=== PATIENT | male | born 1935 | race Caucasian/White ===

== ENCOUNTER → 2016-06-08 | Outpatient (CLI) | payer OTHER, BC ==
[~2016-06-08] VITALS: Ht 177.8 cm; Wt 83.9 kg
[~2016-06-08] MED LIST: ACETAMINOPHEN-1 EAC1 PO; ADVAIR HFA115 MCG/21 INH; ALTACE10 MG PO; AMBIEN 5 MG TABL5 M1 PO; AMLODIPINE BESY10 MG PO; AMOXICILLIN875 MG PO; ASPIRIN81 M2 PO; ATRIPLA TABLET1 EACH PO; AUGMENTIN 875875 MG PO; CARBAMAZEPINE100 M2 PO; CARDIO OMEGA B1 EACH PO; CARDIO TEA1 EACH PO; CENTRUM SILVER1 EAC4 PO; CO Q-10100 MG PO; COLACE100 MG PO; GUAIFENESIN600 MG PO; HUMALOG100 UNIT/2 SUBQ; HYDRALAZINE HC100 MG PO; HYDROCHLOROTHIA25 M2 PO; HYTRIN 2MG CAPSU2 MG PO; LANTUS100 UNIT/M SUBQ; LEVAQUIN 500 M500 M2 PO; LEVOTHYROXIN0.088 MG PO; LOVASTATIN 20 M20 MG PO; MELATONIN PO; MUCINEX TA600 MG/TA2 PO; MULTIVITAMINS1 EAC6 PO; NORCO 5-325 TA1 EACH PO; NORVASC10 MG PO; OMEGA-31000 M1 PO; POTASSIUM20 PO; PREDNISONE 10 M10 MG PO; PREDNISONE 20 M20 MG PO; PRESERVISION A1 EACH PO; PROAIR HFA8.5 GM INH; PROCTOFOAM-HC F10 G1 RE; RESTORIL7.5 M1 PO; TRANDATE 200 M200 M1 PO; TYLENOL W/CODEI1 TA2 PO; VITAMIN D2000 UNI1 PO; ZYRTEC10 MG PO; [UNRECOGNIZED DRUG - CODE] PO
--- NOTE | ~2016-06-08 | HPC ---
[facility] [place] [address] PAIN MANAGEMENT CONSULTATION Name: COOPER CONDE Room #: REG Margo Quiñones.#: [id number] Admission: 06/08/16 Attend Phys: Neptali Islas MD Discharge: Date of : 35 Report #: [id number] THIS REPORT FOR: //name// CC: Hermann Islas DATE OF REGISTRATION: 06/08/2016. CHIEF COMPLAINT: Facial pain on the right. HISTORY OF PRESENT ILLNESS: The patient is a delightful 80-year-old, Dr. Hermann Zapien asked me to see in consultation because of diagnosis of trigeminal neuralgia. Beginning in 09/2015, he began to noticing pain in right side of the face. This developed into a distribution that would be consistent with a second division of trigeminal nerve in the area around that orbit and down into the maxilla, but not into the mandible. The pain at one point was extremely severe, 10/10, sharp, stabbing and shooting. Dr. Zapien and I spoke on the phone and Dr. Zapien initiated therapy with Tegretol a few weeks ago. I am pleased to report that today he scores his average daily pain as a 1, he has had an excellent response to that medication which is so typically helpful for facial neuralgias including trigeminal neuralgia. He gets his appointment today to discuss the condition. I informed in the pain clinic visits often have two components. One is to discuss the disease state, the prognosis and assistant terminal manager management and the second is to help him feel better. He is already accomplished the second portion of the visit! CURRENT MEDICATION: Doses Tegretol 200 mg twice daily, insulin, cholecalciferol, CoQ10, omega 3, hydrochlorothiazide, hydralazine, lovastatin, Synthroid, Altace, Trandate, K-Dur, Hytrin, aspirin, ProAir, CardioTabs, ,Zyrtec, Centrum Silver, Tegretol 200 mg b.i.d., Atripla tablet daily and amlodipine. PAST MEDICAL HISTORY: HIV positive. He has been treated very effectively with antiviral agents and reports that his counts have been undetectable since 1995. Perirectal abscess 2014, gallbladder removed 2002, lymphnode biopsy in 1997, hemorrhoidectomy in 1995, appendectomy 1961, tonsillectomy in 1940. ALLERGIES: SULFA. SOCIAL HISTORY: He is . Denies use of any tobacco or alcohol. Has been retired since 2000. PHYSICAL EXAMINATION: GENERAL: This is a very pleasant, outgoing 80-year-old, alert and oriented, with no signs of anxiety, depression or dementia. VITAL SIGNS: His blood pressure is 143/60, heart rate 57, respirations 16. BMI [facility] [address] [place] [address] PAIN MANAGEMENT CONSULTATION Name: COOPER CONDE Ritchie Room #: REG CL [place]asta#: [id number] Admission: 06/08/16 Attend Phys: Neptali Islas MD Discharge: Date of : 35 Report #: [id number] is 26.5. HEENT: Within normal limits. Pupils are equal, round reaction to light. EOMs intact. Examination of the temporomandibular joint reveals no significant tenderness on the right or left. Mucous membranes are moist, there are no oral lesions. No palpable masses or adenopathy. There is no discomfort on the occiput. Cervical range of motion is excellent with no discomfort. NEUROLOGIC: Cranial nerve exam 2-12 was examined with no evidence of cranial nerve palsy or weakness. Light touch discomfort of the face is not present at this time, there was no allodynia. IMAGING: CT scan of the head is reviewed. 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 There is a small cyst involving sphenoid bone and the clivus anterior to the dong which is not enhancing. This has characteristics suggesting a small CSF extension measuring 3 x 5 mm and is probably consequential related to his current pain. IMPRESSION: 1. Trigeminal neuralgia, currently well managed with Dr. Zapien regimen of Tegretol. We discussed risks of medication and that he should have periodic CBC to check for blood counts, which can be affected by the medication, that is scheduled for in Dr. Zapine's office. 2. We reviewed the course of the disease, which can be episodic. Any recurrence of pain may be followed by possible need for more aggressive treatments which are certainly not needed today. We reviewed neurolytic procedures which have had mixed success, Cyberknife and also the unlikely possibility of microvascular decompression, which would require craniotomy! He was discharged with no followup visit. Dr. Zapien manages his Tegretol. By: 1212 1421 Neptali Islas MD /nt
[2016-06-08 13:23] VITALS: BP 143/60
== END ==
LOC: PAIN 07:14
DX: G50.0 Trigeminal neuralgia (principal); Z79.4 Long term (current) use of insulin; Z79.82 Long term (current) use of aspirin; Z90.49 Acquired absence of other specified parts of digestive tract

== ENCOUNTER 2016-08-05 06:08 | Day surgery (SDC) | payer OTHER, BC ==
[~2016-08-05] VITALS: Ht 177.8 cm; Wt 78.9 kg
--- NOTE | ~2016-08-05 | O ---
[facility] [place] [address] OPERATIVE REPORT Name: COOPER CONDE Room #: DEP [facility].#: [id number] Admission: 08/05/16 Attend Phys: Jeffrey Norton MD Discharge: 08/05/16 Date of : 35 Report #: [id number] THIS REPORT FOR: //name// CC: Hermann Norton DATE OF SERVICE: 08/05/2016 PREOPERATIVE DIAGNOSIS: Large left inguinal hernia extending into the scrotum, likely containing sigmoid colon, chronically incarcerated. POSTOPERATIVE DIAGNOSIS: Large left inguinal hernia with sigmoid colon as part of the hernia sac i.e., sliding inguinal hernia. SURGEON: Jeffrey Norton MD. PROCEDURES PERFORMED: Open repair of large left inguinal hernia with extended Prolene hernia system. ANESTHESIA: General anesthesia. COMPLICATIONS: None. ESTIMATED BLOOD LOSS: 5 mL. PROCEDURE NOTE: With the patient under general anesthesia, IV antibiotic was administered. Abdomen was prepped and draped in a sterile fashion. Timeout was performed. A 0.25% Marcaine was used to anesthetize the skin and subcutaneous tissue. A marking pen was used to draw the skin incision. This was placed slightly above the pubic tubercle. Timeout was performed. The superficial vessels were divided between clamps and ligated with 3-0 Vicryl tie. External oblique fascia was then identified, opened up. The external oblique fascia was cleaned off the inner oblique muscles with the peanuts and cautery. The cord structure was isolated. A drain was placed around the cord. The patient had a very thick cord structure, which contained a hernia sac. The peritoneal hernia sac was identified, opened up. The hernia sac itself was not very extensive, but the posterior lateral wall of the hernia sac was made of sigmoid colon. I was able to feel through the hernia sac into the peritoneal cavity. This is a large indirect hernia with sliding component. The lateral posterior wall was made down the sigmoid colon. The sigmoid colon was free from the rest of the peritoneum. The sigmoid colon was initially delivered out and then adhesions were freed from it, and this was then freed from the hernia sac. This was able to be reduced. The hernia sac was then closed as best as possible with 2-0 PDS suture. The rest of the hernia sac was also then freed from the wall and then reduced back into the properitoneal space. The cord was isolated. [address] [address] OPERATIVE REPORT Name: ELTONCOOPER Room #: DEP [facility] Yokasta#: [id number] Admission: 08/05/16 Attend Phys: Jeffrey Norton MD Discharge: 08/05/16 Date of : 35 Report #: [id number] Almost the whole floor is pretty well destroyed by the indirect hernia because of how long it has been there. Dissection was carried out in the properitoneal space, freeing the wall in the properitoneal space. Extended Prolene hernia system was used. The circular posterior mesh was placed underneath the posterior wall. This was then able to keep the hernia content from pushing out. The circular posterior portion of the mesh was opened up as much as possible. The anterior oval shaped mesh was trimmed slightly medially. The oval portion of the mesh was then sewn to the pubic tubercle and then in a running fashion to the iliopubic tract and the inguinal ligament inferolaterally. This was tied to itself after went lateral to the internal ring. A slit was made medially to accommodate the cord. The mesh was placed around the cord. The mesh was sutured again to the pubic tubercle medially, then to the internal oblique fascia or conjoint tendon. Care was not to disturb the ilioinguinal nerve and the iliohypogastric nerve. The mesh was sewn in well, supported well. Irrigation was performed. The cord structure was then released and then the external oblique fascia was closed with 3-0 PDS in running fashion. Subcutaneous tissue was closed with 4-0 PDS in interrupted fashion. This is the Judi's layer. Skin was then closed with 4-0 PDS running subcuticular fashion. By: 2145 2331 Jeffrey Norton MD /pb
--- NOTE | ~2016-08-05 | H ---
[facility] [place] [address] HISTORY AND PHYSICAL Name: COOPER CONDE Room #: 150-11 [facility]..#: [id number] Admission: 08/05/16 Attend Phys: Jeffrey Norton MD Discharge: Date of : 35 Report #: [id number] THIS REPORT FOR: //name// CC: Hermann Norton PREOPERATIVE DIAGNOSIS: Large left inguinal hernia. HISTORY OF PRESENT ILLNESS: The patient is an 80-year-old who is HIV positive. The patient was seen today by Dr. Hermann Zapien. He has been complaining of enlarging left inguinal hernia over the last 3-4 weeks. It feels like his testicle is swollen. This may have been secondary to him having difficult bowel movement and straining. He has not been aware of prior hernia. He does use stool softener. He is having some soreness across the lower abdomen, feels like gas buildup. No nausea, no vomiting. The patient is eating without difficulty. No chronic sneeze or coughing. The patient does not do much heavy lifting, but occasionally he does lift his 's wheelchair from the trunk of a car. No family history of hernia. The patient is seen in the office, has a pretty large left inguinal hernia that I was not able to put back in, but the hernia is soft, it is not acutely incarcerated, probably chronically incarcerated. The patient is recommended to have his left inguinal hernia repair. He is being worked in today. PAST MEDICAL HISTORY: He has diabetes, high blood pressure, mild asthma, and HIV positive. MEDICATIONS: Include hydralazine, hydrochlorothiazide, labetalol, Mevacor, omega 3, Altace, Hytrin, K-Dur, Atripla, Zyrtec, and Tegretol. He takes Humalog, Lantus, Norvasc, Synthroid, and vitamins. ALLERGIES: The patient has allergies to SULFA. PAST SURGICAL HISTORY: He has had appendectomy many years ago, laparoscopic cholecystectomy, hemorrhoidectomy, lymph node biopsy, and tonsillectomy. FAMILY HISTORY: Unremarkable. SOCIAL HISTORY: The patient is retired. Does not smoke or drink. REVIEW OF SYSTEMS: He has valvular dysfunction. No shortness of breath, chest pain, or palpitations. No numbness or weakness. PHYSICAL EXAMINATION: GENERAL: The patient is an elderly male, in no acute distress. HEENT: Pupils react to light. Extraocular muscles are intact. Oropharynx clear. [facility] [address] [place] [address] HISTORY AND PHYSICAL Name: COOPER CONDE Room #: 150-[address] [place] [address]#: [id number] Admission: 08/05/16 Attend Phys: Jeffrey Norton MD Discharge: Date of : 35 Report #: [id number] NECK: Soft and supple, no masses. LUNGS: Clear to auscultation. HEART: Regular rate and rhythm. No murmur or gallop. ABDOMEN: Soft and nondistended. He has a large left inguinal hernia that extends into the two-thirds of the scrotum. His testicles even difficult to palpate in the left scrotal sac because of the large hernia. I was able to reduce some of it, but not the majority of the hernia. He does not have an acute abdomen. There is no redness in the hernia. He has a large right lower quadrant incision from his appendectomy. EXTREMITIES: No cyanosis, clubbing, or edema. IMPRESSION: The patient is an 80-year-old with a large left inguinal hernia. This has been present for about three weeks and became acutely aware of this. The patient likely has chronic incarcerated hernia. I do not think this is acute incarceration and there is no evidence of strangulation. Because of the large hernia and the symptomatic nature that he has been experiencing lower abdominal discomfort, probably because of may be some mild obstruction. He is recommended to have his hernia repaired. This will be performed in an open manner using a mesh. Risk of bleeding, infection, mesh infection and hernia recurrence was discussed. The patient understands and wishes to proceed. He may be able to go home after the procedure depending on how the procedure goes. He will receive preoperative IV antibiotics. By: 2130 2343 Jeffrey Norton MD /nt
[~2016-08-05 06:08] MED LIST changes: +ALLEGRA ALLERG180 MG PO; +CARBAMAZEPINE200 MG PO
[2016-08-05 11:00] VITALS: BP 147/60
[2016-08-05 11:10] LABS: CALCIUM 8.7 mg/dL (8.5-10.1); POTASSIUM 4.2 mmol/L (3.5-5.1)
[2016-08-05 11:15] LABS: ALBUMIN 3.6 g/dL (3.4-5.0); TOTAL BILIRUBIN 0.7 mg/dL (<0.1-1.0); TOTAL PROTEIN 7.4 g/dL (6.4-8.2)
[2016-08-05] MEDS ORDERED: NORCO 5-325 TA1 EACH PO (14:33)
[2016-08-05 15:09] VITALS: BP 147/60
== END 2016-08-05 15:40 | disposition home or self-care (01) ==
LOC: TBA 06:08 → OR 06:08
PROVIDERS: Surgery
DX: K40.90 Unilateral inguinal hernia, without obstruction or gangrene, not specified as recurrent (principal); E11.9 Type 2 diabetes mellitus without complications; J45.909 Unspecified asthma, uncomplicated; I10 Essential (primary) hypertension; G50.0 Trigeminal neuralgia; E03.9 Hypothyroidism, unspecified; J32.9 Chronic sinusitis, unspecified; G47.33 Obstructive sleep apnea (adult) (pediatric); E78.00 Pure hypercholesterolemia, unspecified; Z79.4 Long term (current) use of insulin; Z90.49 Acquired absence of other specified parts of digestive tract; Z88.2 Allergy status to sulfonamides
CPT/HCPCS: 50010; 50101; 50386; 50403; 54111; 54118; 56524; 56525; 62110; 62900; 70005

== ENCOUNTER 2016-09-05 22:44 | Emergency (ER) | payer OTHER, BC ==
[~2016-09-05] VITALS: Ht 157.5 cm; Wt 82.6 kg
--- NOTE | ~2016-09-05 | EKG ---
[address] [place] [address] ELECTROCARDIOGRAM REPORT Name: COOPER CONDE Ritchie [id number] Admission: 09/05/16 Attend Phys: Discharge: 09/06/16 Date of : 35 Report #: [id number] THIS REPORT FOR: //name// [facility] ED Test Date: 2016-09-05 Test Time: 23:05:12 Pat Name: COOPER CONDE Department: Room: Gender: Industrial Cleaning Technician: [facility] : 1935 Requested By: Raquel Ruiz Order Number: [id number] MD: Roman Amaro Measurements Intervals [place] Rate: 109 P: LA: QRS: -25 QRSD: 97 T: 24 QT: 343 QTc: 463 Interpretive Statements Junctional tachycardia Left ventricular hypertrophy No previous ECG available for comparison Electronically Signed On 09-07-2016 8:24:41 CDT by Roman Amaro [email or web address] <ELECTRONICALLY SIGNED> By: Roman Amaro MD, [facility] 09/07/16 0824 2305 2305 Roman Amaro MD, FACC /EPI
[2016-09-05 23:08] LABS: URINE BILIRUBIN NEGATIVE (Negative); URINE BLOOD NEGATIVE (Negative); URINE COLOR YELLOW; URINE GLUCOSE-RANDOM* NEGATIVE (Negative); URINE KETONES NEGATIVE (Negative); URINE NITRITE NEGATIVE (Negative); URINE PROTEIN (DIPSTICK) NEGATIVE (Negative); URINE SPECIFIC GRAVITY 1.015 (1.003-1.035); URINE UROBILINOGEN 0.2 E.U./dl (0.2-1.0)
[2016-09-05 23:45] LABS: HEMATOCRIT 38.3 % (42.0-52.0); HEMOGLOBIN 13.4 gm/dL (14.0-18.0); MCH 34.7 pg (26.0-34.0); MCV 99.3 fL (80.0-100.0); PLATELET COUNT 73 thou/uL (150-400); RBC 3.85 mil/uL (4.50-6.00); RDW 12.8 % (10.5-14.5); WBC 4.7 thou/uL (4.0-11.0)
[2016-09-05 23:48] LABS: MANUAL DIFF YES
[2016-09-05 23:56] LABS: POTASSIUM 3.6 mmol/L (3.5-5.1)
[2016-09-06 00:02] LABS: ALBUMIN 3.3 g/dL (3.4-5.0); DIRECT BILIRUBIN 0.2 mg/dL (<0.1-0.3); TOTAL BILIRUBIN 0.5 mg/dL (<0.1-1.0); TOTAL PROTEIN 7.1 g/dL (6.4-8.2)
[2016-09-06 00:12] LABS: ABSOLUTE NEUTROPHILS 4.6 thou/uL (1.4-8.2); LARGE PLATELETS OCCASIONAL; PLATELET ESTIMATE DECREASED; TOTAL CELL COUNT 100
[2016-09-06] MEDS ORDERED: CARDIO OMEGA B1 EACH PO (01:15)
[2016-09-06] MEDS ORDERED: VITAMIN B12 PO (01:20)
[2016-09-06] MEDS ORDERED: MAGOX 400400 MG PO (01:20)
[2016-09-06] MEDS ORDERED: CALCIUM 600 +1 EAC1 PO (01:21)
[2016-09-06] MEDS ORDERED: ZINC50 M1 (01:22)
[2016-09-06] MEDS ORDERED: CO Q-10100 MG (01:22)
[2016-09-06] MEDS ORDERED: [UNRECOGNIZED DRUG - OTHER] PO (01:25)
[2016-09-06] MEDS ORDERED: TEGRETOL200 MG (01:26)
== END 2016-09-06 01:04 | disposition home or self-care (01) ==
LOC: ER 22:44
PROVIDERS: Emergency Medicine
DX: R50.9 Fever, unspecified (principal); D69.6 Thrombocytopenia, unspecified; I10 Essential (primary) hypertension; E11.9 Type 2 diabetes mellitus without complications; E03.9 Hypothyroidism, unspecified; G47.30 Sleep apnea, unspecified; J45.909 Unspecified asthma, uncomplicated; E78.00 Pure hypercholesterolemia, unspecified; Z88.2 Allergy status to sulfonamides; Z90.89 Acquired absence of other organs; Z90.49 Acquired absence of other specified parts of digestive tract; Z21 Asymptomatic human immunodeficiency virus [HIV] infection status; Z79.4 Long term (current) use of insulin

== ENCOUNTER 2018-12-13 13:19 | Emergency (ER) | payer OTHER, BC ==
[~2018-12-13] VITALS: Ht 177.8 cm; Wt 75.3 kg
[~2018-12-13 13:19] MED LIST changes: +CALCIUM 600 +1 EAC1 PO; +CO Q-10100 MG; +MAGOX 400400 MG PO; +TEGRETOL200 MG PO; +VITAMIN B12 PO; +ZINC50 M1; +[UNRECOGNIZED DRUG - OTHER] PO
[2018-12-13] MEDS ORDERED: ASPIR 8181 MG PO (13:52)
[2018-12-13] MEDS ORDERED: KLOR-CON 1010 MEQ PO (13:52)
[2018-12-13] MEDS ORDERED: NEURONTIN 300300 M1 PO (13:55)
[2018-12-13 14:11] VITALS: BP 138/53
== END 2018-12-13 14:11 | disposition home or self-care (01) ==
LOC: ER 13:19
DX: G50.0 Trigeminal neuralgia (principal); I10 Essential (primary) hypertension; E11.9 Type 2 diabetes mellitus without complications; E78.00 Pure hypercholesterolemia, unspecified; J45.909 Unspecified asthma, uncomplicated; G47.30 Sleep apnea, unspecified; B20 Human immunodeficiency virus [HIV] disease; Z79.4 Long term (current) use of insulin; Z90.49 Acquired absence of other specified parts of digestive tract; Z88.2 Allergy status to sulfonamides

== ENCOUNTER → 2019-02-13 | Outpatient (CLI) | payer OTHER, BC ==
[~2019-02-13] VITALS: Ht 177.8 cm; Wt 75.8 kg
[~2019-02-13] MED LIST changes: +ASPIR 8181 MG PO; +HYTRIN 2MG CAPSU2 M1 PO; +IRON325 PO; +KLOR-CON 1010 MEQ PO; +MAGNESIUM400 MG PO; +NEURONTIN 300300 M1 PO; +PRESERVISION L1 EACH PO; +TURMERIC500 M2 PO; +VITAMIN D35000 UNIT PO; +ZYRTEC10 M4 PO
[2019-02-13 10:28] VITALS: BP 140/59
--- NOTE | 2019-02-13 11:13 | NUR ---
Pain Clinic Assessment: 1. History of Osteoarthritis: Not Applicable History of Rheumatoid Arthritis: Not Applicable 2. Height: 5 ft. 10 in. 177.8 cm. Weight: 167.0 lb. oz. 75.751 kg. Patient's BMI: 24.0 3. Vital Signs: BP: 140/59 Pulse: 51 Resp: 14 Temp: 02 Sat: 98 ECG Mon: 4. Pain Intensity: 9-10-NOW FROM TOUCHING 5. Fall Risk: Dizziness: N Needs help standing or walking: N Fallen in the last 3 months: N Fall risk comments: 6. Patient on Blood Thinner: None 7. History of Hypertension: Y 8. Opioid Therapy greater than 6 weeks: N Opiate Contract Signed: 9. Risk Assessment Tool Provided: LOW 10. Functional Assessment Tool: 11. Recreational Drug Use: Never Drug Type: Tobacco Use: Never Smoker Tobacco Type: Amount or Packs/day: How Many Years: Alcohol Use: No Frequency: Quant:
== END ==
LOC: PAIN 06:56
DX: G50.0 Trigeminal neuralgia (principal); Z79.899 Other long term (current) drug therapy; Z88.2 Allergy status to sulfonamides

== ENCOUNTER → 2019-04-06 | Outpatient (CLI) | payer OTHER, BC | LOC: RAD 14:17 | DX: J45.20 Mild intermittent asthma, uncomplicated (principal); M41.84 Other forms of scoliosis, thoracic region ==

== ENCOUNTER 2020-05-13 21:17 | Inpatient (IN) | payer OTHER, BC ==
[~2020-05-13] VITALS: Ht 177.8 cm; Wt 73.9 kg
[2020-05-13 21:20] VITALS: BP 134/51
[2020-05-13] MEDS ORDERED: BIKTARVY 50-201 EACH PO (21:49)
[2020-05-13] MEDS ORDERED: TAMSULOSIN HCL0.4 MG PO (21:53)
[2020-05-13 21:54] LABS: ABSOLUTE NEUTROPHILS 2.4 thou/uL (1.4-8.2); BASOPHILS 0.9 % (0.0-2.0); EOSINOPHILS 4.2 % (0.0-3.0); HEMATOCRIT 33.1 % (42.0-52.0); HEMOGLOBIN 11.9 gm/dL (14.0-18.0); LYMPHOCYTES 15.8 % (24.0-44.0); MCH 35.1 pg (26.0-34.0); MCHC 35.9 g/dL (28.0-37.0); MCV 97.6 fL (80.0-100.0); MONOCYTES 12.8 % (1.0-8.0); PLATELET COUNT 85 thou/uL (150-400); POLYS 66.3 % (36.0-66.0); RBC 3.39 mil/uL (4.50-6.00); RDW 12.7 % (10.5-14.5); WBC 3.6 thou/uL (4.0-11.0)
[2020-05-13] MEDS ORDERED: INSULIN LI100 UNIT/1 (21:57)
[2020-05-13 22:11] LABS: ALBUMIN 3.4 g/dL (3.4-5.0); CALCIUM 8.2 mg/dL (8.5-10.1); CREATININE 0.8 mg/dL (0.7-1.3); DIRECT BILIRUBIN 0.2 mg/dL (<0.1-0.2); POTASSIUM 3.8 mmol/L (3.5-5.1); TOTAL BILIRUBIN 0.6 mg/dL (0.2-1.0); TOTAL PROTEIN 6.4 g/dL (6.4-8.2)
[2020-05-14 03:19] LABS: CALCIUM 7.7 mg/dL (8.5-10.1); CREATININE 0.8 mg/dL (0.7-1.3); MAGNESIUM 1.5 mg/dL (1.8-2.4); POTASSIUM 3.5 mmol/L (3.5-5.1)
[2020-05-14 03:28] LABS: URINE BILIRUBIN NEGATIVE (Negative); URINE BLOOD NEGATIVE (Negative); URINE CLARITY CLEAR; URINE COLOR YELLOW; URINE GLUCOSE-RANDOM* NEGATIVE (Negative); URINE KETONES NEGATIVE (Negative); URINE LEUKOCYTES-REFLEX NEGATIVE (Negative); URINE NITRITE-REFLEX NEGATIVE (Negative); URINE PROTEIN (DIPSTICK) NEGATIVE (Negative)
[2020-05-14 03:32] LABS: URINE CREATININE-RANDOM* 54.5 mg/dL
--- NOTE | 2020-05-14 07:20 | EKG ---
[address] [place] [address] ELECTROCARDIOGRAM REPORT Name: COOPER CONDE Room #: 170-10 ADM IN M.R.#: [id number] Admission: 05/13/20 Attend Phys: Derrek Pardo MD Discharge: Date of : 35 Report #: [id number] [facility] ED Test Date: 2020-05-13 Test Time: 21:40:27 Pat Name: COOPER CONDE Department: Room: 170 Gender: M Technical Planner: gaurav vale : 1935 Requested By: Jairo Hirsch Order Number: [id number] MD: Jason Rosario Measurements Intervals [place] Rate: 52 P: 35 UT: 265 QRS: -28 QRSD: 107 T: 62 QT: 451 QTc: 420 Interpretive Statements Sinus rhythm Prolonged UT interval RSR' in V1 or V2, right VCD or RVH Left ventricular hypertrophy Compared to ECG 09/05/2016 23:05:12 First degree AV block now present Right ventricular hypertrophy now present RSR' in V1 or V2 now present Junctional tachycardia no longer present Electronically Signed On 05-14-2020 7:20:28 SANDBLASTING SUPERVISOR by Jason Rosario [email or web address] <ELECTRONICALLY SIGNED> By: Jason Rosario MD, [facility] 05/14/20 0720 39 39 Jason Rosario MD, [facility] /EPI
[2020-05-14 08:28] VITALS: BP 138/50
--- NOTE | 2020-05-14 10:50 | NUR ---
IV FLUIDS STOPPED PER DR CASAS
--- NOTE | 2020-05-14 12:13 | NUR ---
SPOKE WITH DR. UREÑA REGARDING AMLODPINE- PROVIDER WILL CALL BACK TO DECIDE IF HE WANTS TO GIVE IT. INFORMED OF NA 115.
[2020-05-14 12:18] VITALS: BP 132/43
[2020-05-14 14:01] VITALS: BP 122/48
[2020-05-14 14:33] VITALS: BP 120/52
[2020-05-14 14:52] VITALS: BP 153/61
[2020-05-14 15:08] LABS: ALBUMIN 2.9 g/dL (3.4-5.0); CALCIUM 8.1 mg/dL (8.5-10.1); CREATININE 0.9 mg/dL (0.7-1.3); PHOSPHORUS 2.8 mg/dL (2.5-4.9); POTASSIUM 3.8 mmol/L (3.5-5.1)
[2020-05-14] MEDS ORDERED: OXCARBAZEPINE300 MG PO (16:00)
--- NOTE | 2020-05-14 18:31 | NUR ---
PT ARRIVED TO [facility] AT 1430. PT ALERT AND ORIENTED x3. CURRENT SODIUM LEVEL IS 120. MEDS ARE RECONCILLED. PT CONNECTED TO TELEMETRY. DR. UREÑA NOTIFIED ABOUT PT ARRIVAL TO [facility]. CONTINUE TO MONITOR.
[2020-05-14 19:26] VITALS: BP 132/57
[2020-05-15 03:21] VITALS: BP 121/60
--- NOTE | 2020-05-15 04:45 | NUR ---
PT IS A/0X3 WITH SOME SHORT TERM CONFUSION/LOSS. PT IS VERY IMPULSIVE AND WILL GET OUT OF BED WITHOUT USING CALL LIGHT WHEN NEEDING ASSISTANCE. BED ALARM SET. PT ALSO REMOVED TELE MULTIPLE TIMES OVERNIGHT. AWAITING AM LABS FOR NA LEVELS.
[2020-05-15 05:18] LABS: ALBUMIN 3.1 g/dL (3.4-5.0); CALCIUM 8.6 mg/dL (8.5-10.1); PHOSPHORUS 3.1 mg/dL (2.5-4.9); POTASSIUM 3.9 mmol/L (3.5-5.1)
[2020-05-15 07:23] VITALS: BP 131/45
--- NOTE | 2020-05-15 12:51 | NUR ---
INITIAL ASSESSMENT/DISCHARGE NOTE: SW reviewed chart and spoke with nursing and attending physician. Pt was admitted from home due to hyponatremia. Per attending, pt is medically stable for discharge home today. SW met with pt at bedside. Introduced role of SW. Pt is alert/orientated x 4. Pt reports he lives at home alone. Prior to admission, pt was independent with ADLs. No use of DME. Pt has DME at home that his used. Pt states he has stairs at home and he is able to navigate the stairs. No hx of services or post-acute care placement. Pt's PCP is Dr. Hermann Zapien. Pt has children that live nearby and are able to assist pt as needed. Pt will have transportation home when discharged. No SW needs identified at this time, but is available to assist should needs arise.
[2020-05-15 12:55] VITALS: BP 116/50
[2020-05-15 13:23] VITALS: BP 116/50
--- NOTE | 2020-05-15 15:10 | NUR ---
RN ASSUMED PT'S CARE AT 0700AM, PT IS A&OX3, PT IS ON ROOM AIR , PT'S LAB RESULTS HAVE IMPROVED, PT CAN GET UP TO WALK IN HIS ROOM WITHOUT HELP, PT DENIES PAIN ANS SOB , RN RECEIVED ORDER TO DC PT TO HOME, RN HAD GIVING DC TEACHING , PT UNDERSTANDED WELL , PT'S SON ACROBATIC DANCER PT ABOUT 1440PM.
== END 2020-05-15 14:40 | disposition home or self-care (01) | DRG 641 ==
LOC: ER 21:17 → EROBS 23:27 → 3W 05-14 14:41
PROVIDERS: Hospitalist; Nurse Practitioner; Nurse Practitioner Family; ADMIT Internal Medicine; ATTEND Internal Medicine
DX: E87.1 Hypo-osmolality and hyponatremia (principal); Z21 Asymptomatic human immunodeficiency virus [HIV] infection status; D47.2 Monoclonal gammopathy; G50.0 Trigeminal neuralgia; I10 Essential (primary) hypertension; E11.9 Type 2 diabetes mellitus without complications; E03.9 Hypothyroidism, unspecified; J45.909 Unspecified asthma, uncomplicated; E78.00 Pure hypercholesterolemia, unspecified; E78.5 Hyperlipidemia, unspecified; N40.0 Benign prostatic hyperplasia without lower urinary tract symptoms; G47.30 Sleep apnea, unspecified; D69.6 Thrombocytopenia, unspecified; Z90.49 Acquired absence of other specified parts of digestive tract; Z79.899 Other long term (current) drug therapy; Z79.4 Long term (current) use of insulin; Z79.82 Long term (current) use of aspirin; Z88.2 Allergy status to sulfonamides; Z80.8 Family history of malignant neoplasm of other organs or systems
CPT/HCPCS: 10879